=== PATIENT | male | born 1965 | race Caucasian/White ===

== ENCOUNTER 2020-08-27 03:30 | Emergency (ER) | payer MEDICARE, MEDICAID, SELFPAY ==
[2020-08-27 03:46] VITALS: BP 147/94; PULSE 106; RESP 20; TEMP 36.6; O2SAT 99; BMI 34.4
--- NOTE | 2020-08-27 05:11 | ED_ITS ---
HPI - Wound/Laceration General Chief Complaint: Wound/Laceration Stated Complaint: Wound check Time Seen by Provider: 08/27/20 04:59 Source: patient Mode of arrival: ambulatory Limitations: no limitations History of Present Illness HPI narrative: Patient comes emergency room complaining of a large blister on his right foot. Patient states that he has been walking a long distance, patient is homeless. Patient states that he walked from [place] 3 days ago. Related Data Allergies Allergy/AdvReac Type Severity Reaction Status Date / Time aripiprazole [From ABILIFY] Allergy Unknown CHEST PAIN Unverified 05/02/20 14:45 codeine [CODEINE] Allergy Unknown CHEST PAIN Unverified 05/02/20 14:45 diphenhydramine [Benadryl] Allergy Unknown Verified 08/08/15 00:00 ziprasidone [Geodon] Allergy Unknown Verified 08/08/15 00:00 quetiapine [Seroquel] AdvReac Unknown Dizziness Verified 08/08/15 00:00 From Benadryl Allergy Allergy Unknown N/A Uncoded 05/02/20 14:45 From GEODON Allergy Unknown CHEST PAIN Uncoded 05/02/20 14:45 From SEROQUEL Allergy Unknown HTN,INCREASED Uncoded 05/02/20 14:45 PULSE Review of Systems Review of Systems: Constitutional : No Weight loss, No Fever, No Chills, No Night Sweats, No Fatigue, No Malaise ENT/Mouth : No Hearing loss, No Ear Pain, No Nasal Congestion, No Sinus Pain, No Hoarseness, No sore throat, No Rhinorrhea, No Swallowing Difficulty Eyes: No Eye Pain, No Swelling, No Redness, No Foreign Body, No Discharge, No Vision Changes Cardiovascular : No Chest Pain, No SOB, No Dyspnea on Exertion, No Orthopnea, No Edema, No Palpitations Respiratory : No Cough, No Sputum, No Wheezing, No Smoke Exposure, No Dyspnea Gastrointestinal : No Nausea, No Vomiting, No Diarrhea, No Constipation, No abdominal Pain, No Hematochezia, No Melena Genitourinary : no irregular bleeding, No Dysuria, No Urinary Frequency, No Hematuria, No Urinary Incontinence, No Urgency, No Flank Pain, No Urinary Flow Changes, No Hesitancy Musculoskeletal : No joint pain, No Myalgias, No Joint Swelling Skin : Complaining of blisters in both feet but worse on the right foot Neuro : No Weakness, No Numbness, No Paresthesias, No Loss of Consciousness, No Dizziness, No Headache Psych : No Anxiety/Panic, No Depression, No SI/HI/AH/VH, No Social Issues, Heme/Lymph: No Bruising, No Bleeding,No Lymphadenopathy Endocrine : No Polyuria, No Polydipsia, No Temperature Intolerance PMFSH Past Medical History Medical History Schizophrenia Social History Social History Advance Directives: No Physical Exam Vital Signs: Vital Signs: Last Vital Signs Temp 98 F 08/27/20 03:46 Pulse 106 H 08/27/20 03:46 Resp 20 08/27/20 03:46 BP 147/94 H 08/27/20 03:46 Pulse Ox 99 08/27/20 03:46 Body Mass Index 34.4 Appearance: Alert. Oriented X3. No acute distress. Disheveled Eyes: Pupils equal, round and reactive to light. ENT: Pharynx normal. Neck: Normal inspection. Neck supple. No lymph nodes noted. No crepitus CVS: Normal heart rate and rhythm. Pulses normal. Normal S1 and S2 Respiratory: No respiratory distress. Breath sounds normal. No Wheezing. No rales Abdomen: Soft and nontender. No rigidity. No distention. good BS x4 Skin: Skin warm and dry. Patient has multiple blisters in both soles, the blisters under right foot already popped, a large blister on the left foot has serosanguineous fluid, no cellulitis Extremities: No lower extremity edema. No lower extremity edema. No Lacerations. No Rash Neuro: Oriented X 3. No motor deficit. No sensory deficit. Moving all extermities. No slurred speech. Psych: Patient is laughing by himself, uncooperative, patient is not suicidal or homicidal Course Course Course Narrative: The blister was drained with a hypodermic needle, serosanguineous fluid was drained, no pus. Patient states that he feels much better. Patient requesting a turkey sandwich. Discharge Plan Discharge Clinical Impression: Blister of foot Qualifiers: Encounter type: initial encounter Laterality: unspecified laterality Qualified Code(s): S90.829A - Blister (nonthermal), unspecified foot, initial encounter Patient Disposition: Home, Self-Care Additional Instructions: Please follow-up with your primary care physician tomorrow. If you have any worsening or new symptoms, please return to the emergency room or call 911
--- NOTE | 2020-08-27 05:18 | PC.NURSE ---
Pt provided with coffee per request, aware of plan to DC.
== END 2020-08-27 05:35 | disposition home or self-care (01) ==
PROVIDERS: Emergency Provider Emergency Medicine
DX: S90.821A Blister (nonthermal), right foot, initial encounter (principal); M79.671 Pain in right foot; X58.XXXA Exposure to other specified factors, initial encounter; Y93.9 Activity, unspecified; Y92.9 Unspecified place or not applicable; Y99.9 Unspecified external cause status
CPT/HCPCS: 99283

== ENCOUNTER 2020-08-27 20:43 | Emergency (ER) | payer MEDICARE, MEDICAID, SELFPAY | END 2020-08-27 21:07 | disposition left against medical advice (07) | PROVIDERS: Emergency Provider Internal Medicine | DX: M25.50 Pain in unspecified joint (principal) | CPT/HCPCS: 99281 ==

== ENCOUNTER 2020-08-27 21:10 | Emergency (ER) | payer MEDICARE, MEDICAID, SELFPAY ==
[2020-08-27 23:47] VITALS: BP 132/83; BMI 35.9
[2020-08-28] VITALS (8 sets, daily range): BP systolic 107–132; BP diastolic 64–83; PULSE 82–99; RESP 16–18; TEMP 37.1; O2SAT 96–98
--- NOTE | 2020-08-28 03:24 | ED.GENADULT ---
HPI - General Adult General Chief complaint: General Medical Stated complaint: CRISIS Time Seen by Provider: 08/28/20 03:24 Source: patient Mode of arrival: ambulatory Limitations: no limitations History of Present Illness HPI narrative: Patient comes to emergency room stating that started it started raining outside, patient is homeless, then he decided that he wanted [facility] come [facility]. Patient states that he wants to see [facility] to help her decide if he needs to go back to [facility]. Patient admits to using crack and heroin. Patient gets Haldol IM for schizophrenia. Patient was seen earlier this morning with a chief complaint of blisters in his feet. MD complaint: Wants to see [facility] Related Data Allergies Allergy/AdvReac Type Severity Reaction Status Date / Time aripiprazole [From ABILIFY] Allergy Unknown CHEST PAIN Verified 08/27/20 23:46 codeine [CODEINE] Allergy Unknown CHEST PAIN Verified 08/27/20 23:46 diphenhydramine [Benadryl] Allergy Unknown Unknown Verified 08/27/20 23:46 ziprasidone [Geodon] Allergy Unknown Unknown Verified 08/27/20 23:46 quetiapine [Seroquel] AdvReac Unknown Dizziness Verified 08/27/20 23:46 From Benadryl Allergy Allergy Unknown N/A Uncoded 05/02/20 14:45 From GEODON Allergy Unknown CHEST PAIN Uncoded 05/02/20 14:45 From SEROQUEL Allergy Unknown HTN,INCREASED Uncoded 05/02/20 14:45 PULSE Review of Systems Review of Systems: Constitutional : No Weight loss, No Fever, No Chills, No Night Sweats, No Fatigue, No Malaise ENT/Mouth : No Hearing loss, No Ear Pain, No Nasal Congestion, No Sinus Pain, No Hoarseness, No sore throat, No Rhinorrhea, No Swallowing Difficulty Eyes: No Eye Pain, No Swelling, No Redness, No Foreign Body, No Discharge, No Vision Changes Cardiovascular : No Chest Pain, No SOB, No Dyspnea on Exertion, No Orthopnea, No Edema, No Palpitations Respiratory : No Cough, No Sputum, No Wheezing, No Smoke Exposure, No Dyspnea Gastrointestinal : No Nausea, No Vomiting, No Diarrhea, No Constipation, No abdominal Pain, No Hematochezia, No Melena Genitourinary : no irregular bleeding, No Dysuria, No Urinary Frequency, No Hematuria, No Urinary Incontinence, No Urgency, No Flank Pain, No Urinary Flow Changes, No Hesitancy Musculoskeletal : No joint pain, No Myalgias, No Joint Swelling Skin : Complaining of blisters on his feet Neuro : No Weakness, No Numbness, No Paresthesias, No Loss of Consciousness, No Dizziness, No Headache Psych : Denies suicidal or homicidal ideation, no anxiety, no depression Heme/Lymph: No Bruising, No Bleeding,No Lymphadenopathy Endocrine : No Polyuria, No Polydipsia, No Temperature Intolerance [facility] Past Medical History Medical History Schizophrenia Social History Social History Advance Directives: No Physical Exam Vital Signs: Vital Signs: Last Vital Signs Pulse 99 08/28/20 02:46 Resp 18 08/28/20 02:46 BP 132/83 08/28/20 02:46 Pulse Ox 98 08/28/20 02:46 Body Mass Index 35.9 Appearance: Alert. Oriented X3. No acute distress. Somnolent Eyes: Pupils equal, round and reactive to light. ENT: Pharynx normal. Neck: Normal inspection. Neck supple. No lymph nodes noted. No crepitus CVS: Normal heart rate and rhythm. Pulses normal. Normal S1 and S2 Respiratory: No respiratory distress. Breath sounds normal. No Wheezing. No rales Abdomen: Soft and nontender. No rigidity. No distention. good BS x4 Skin: Blisters in his feet Extremities: No lower extremity edema. No lower extremity edema. No Lacerations. No Rash Neuro: Oriented X 3. No motor deficit. No sensory deficit. Psych: Patient has rapid speech, easily redirectable
--- NOTE | 2020-08-28 05:42 | PC.NURSE ---
PT RESTING QUIETLY IN RECLINER AT THIS TIME. WAITING FOR [facility]
--- NOTE | 2020-08-28 05:43 | PC.NURSE ---
ISAI MAINTAINED FOR SAFETY
[2020-08-29] VITALS: RESP 18
[2020-08-29 02:00] VITALS: BP 105/56; PULSE 74; RESP 16; TEMP 36.9; O2SAT 99
[2020-08-29 03:53] VITALS: RESP 16
[2020-08-29 05:47] VITALS: BP 132/74; PULSE 76; RESP 18; TEMP 36.9; O2SAT 96
[2020-08-29 06:01] VITALS: BP 120/69; PULSE 85; RESP 18; TEMP 36.8; O2SAT 93
[2020-08-29 06:01] LABS: Appearance Urine CLEAR; Color Urine YELLOW; Glucose Urine UA NEG (NEG); Leukocyte Esterase Urine NEG (NEG); Nitrite Urine NEG (NEG); Specific Gravity - Urine 1.025 (1.005-1.025); UACC Culture Trigger NO; Urine Blood NEG (NEG); Urine Ketones NEG (NEG); Urine Protein NEG (NEG-TRACE)
[2020-08-29 06:24] LABS: Amphetamine Screen Urine Not Detected (Not Detect); Barbiturates, Urine Not Detected (Not Detect); Benzodiazepines Screen Urine Not Detected (Not Detect); Cannabinoid Screen Urine POSITIVE (Not Detect); Cocaine Screen Urine Not Detected (Not Detect); Opiate Screen Urine Not Detected (Not Detect); Phencyclidine Screen Urine Not Detected (Not Detect)
--- NOTE | 2020-08-29 08:42 | PC.NURSE ---
PT HAD BREAKFAST. AWAITING CARE TEAM TO ARRANGE FOR PT TO BE TRANSFERRED TO [facility] IN [place]
[2020-08-29 11:29] LABS: IDNOW Serial# 9DD0AD1C
[2020-08-29 11:30] LABS: COVID-19 Test Negative (Negative)
--- NOTE | 2020-08-29 12:22 | MHC.CARE ---
CARE team spoke w person in charge (Farhan Lozada) [phone] at the [facility] in [place]. He was open to pt returning anytime today and asked that a covid test be done prior if possible which the ED did and the test is negative. Due to their own infrastructure issues they cannot pick pt up therefore [facility] will have to get pt a cab/uber home. T/w spoke w pt about having to take a ride home and he was open to this and pleasant, looking forward to leaving the ED. T/w spoke hugo Real at 1227 to provide COVID results and to confirm that pt will be discharged and sent home once the ride was secured which he agreed. .
--- NOTE | 2020-08-29 12:54 | MHC.RECOVSUP ---
? Reason for consult:Continuity of care. o Current location: Discharged o Identified substance use concern: N/A - Support ? Intervention: ? Plan:Send pt. to respite ? Additional information:Patient sent to [place] in a lyft to the [facility].
== END 2020-08-29 12:41 ==
PROVIDERS: Nurse Practitioner Family; Emergency Provider Emergency Medicine
DX: F20.9 Schizophrenia, unspecified (principal); Z20.828 Contact with and (suspected) exposure to other viral communicable diseases; Z75.5 Holiday relief care; F11.90 Opioid use, unspecified, uncomplicated; Z79.899 Other long term (current) drug therapy
CPT/HCPCS: 36415; 80307; 81003; 87635; 99285

== ENCOUNTER 2021-07-19 08:17 | Emergency (ER) | payer MEDICARE, MEDICAID, SELFPAY ==
--- NOTE | ~2021-07-19 | XR_ITS ---
EXAMINATION: RIGHT FOOT AND ANKLE CLINICAL INFORMATION: Patient complains of getting blisters with cast being loose. COMPARISON: None TECHNIQUE: 3 views of the right foot and 2 views of the right ankle FINDINGS: Findings bony details obscured by overlying cast. Previous studies are not available for comparison so comment on any stability of positioning cannot be made. Medial malleolar fracture is identified with approximately 3 mm distraction of the thoracic limits. The medial joint space measures up to 5 mm. There appears to be a nondisplaced vertical fracture within the distal tibia. No other definite fracture of either the right foot or ankle appreciated. No erosive change is seen. XR/XR ankle RT min 3V IMPRESSION: Cast in place for medial malleolar fracture and distal tibial fracture as described.
--- NOTE | ~2021-07-19 | XR_ITS ---
EXAMINATION: RIGHT FOOT AND ANKLE CLINICAL INFORMATION: Patient complains of getting blisters with cast being loose. COMPARISON: None TECHNIQUE: 3 views of the right foot and 2 views of the right ankle FINDINGS: Findings bony details obscured by overlying cast. Previous studies are not available for comparison so comment on any stability of positioning cannot be made. Medial malleolar fracture is identified with approximately 3 mm distraction of the thoracic limits. The medial joint space measures up to 5 mm. There appears to be a nondisplaced vertical fracture within the distal tibia. No other definite fracture of either the right foot or ankle appreciated. No erosive change is seen. XR/XR foot RT min 3V IMPRESSION: Cast in place for medial malleolar fracture and distal tibial fracture as described.
[2021-07-19 08:27] VITALS: BP 161/98; PULSE 97; RESP 20; TEMP 36.7; O2SAT 100
[2021-07-19 08:28] VITALS: BP 161/98; PULSE 97; RESP 20; TEMP 36.7; O2SAT 99; BMI 27.7
--- NOTE | 2021-07-19 08:47 | ED_ITS ---
HPI - General Adult General Chief complaint: Extremity Injury, Lower Stated complaint: CASTED RIGHT FOOT PAIN FROM BLISTERS Time Seen by Provider: 07/19/21 08:45 Source: patient Mode of arrival: ambulatory Limitations: no limitations History of Present Illness HPI narrative: This is a 56 years old male presented ambulatory to the emergency department requesting the removal of the right leg cast. The cast was placed at [facility] about a week ago, unclear if he had a fracture or not. the patient has been walking on the cast and requesting removal. The patient is unable to give me the name or the orthopedic surgeon who placed the cast. Onset (ago): day(s) (1) Location: lower extremity (rt leg) Radiation: non-radiation Quality: aching Pain Consistency: constant Exacerbating factors: none Related Data Allergies Allergy/AdvReac Type Severity Reaction Status Date / Time aripiprazole [From ABILIFY] Allergy Unknown CHEST PAIN Verified 08/27/20 23:46 codeine [CODEINE] Allergy Unknown CHEST PAIN Verified 08/27/20 23:46 diphenhydramine [Benadryl] Allergy Unknown Unknown Verified 08/27/20 23:46 ziprasidone [Geodon] Allergy Unknown Unknown Verified 08/27/20 23:46 quetiapine [Seroquel] AdvReac Unknown Dizziness Verified 08/27/20 23:46 From Benadryl Allergy Allergy Unknown N/A Uncoded 05/02/20 14:45 From GEODON Allergy Unknown CHEST PAIN Uncoded 05/02/20 14:45 From SEROQUEL Allergy Unknown HTN,INCREASED Uncoded 05/02/20 14:45 PULSE Review of Systems Review of Systems: Yes all other systems are reviewed and are negative Cardiovascular: Cardiovascular: Reports no additional cardiovascular complaints Gastrointestinal: Gastrointestinal: Reports no additional gastrointestinal complaints Musculoskeletal: Musculoskeletal: Reports no additional musculoskeletal complaints Neurologic: Reports system reviewed and no additional complaints, except as documented PMFSH Past Medical History Medical History Schizophrenia Social History Social History Alcohol intake: unknown Advance Directives: No Advance Directives Information Provided: Yes Physical Exam Vital Signs: Vital Signs: Last Vital Signs Temp 98.1 F 07/19/21 08:28 Pulse 97 07/19/21 08:28 Resp 20 07/19/21 08:28 BP 161/98 H 07/19/21 08:28 Pulse Ox 99 07/19/21 08:28 BMI result Body Mass Index 27.7 Const: Other: On physical examination looks well is not toxic-appearing he is afebrile General: cooperative Nutritional Appearance: average body habitus Orientation/consciousness: patient oriented x3 HENMT: Head: Yes normal to inspection General nose exam: Normal external nose present Face and sinus: Yes normal facial exam Mouth: Normal oral and palatal mucosa present Throat: Yes posterior oropharynx normal Neck: Neck: Yes normal visual inspection and Yes full ROM Chest: Chest palpation & inspection: normal inspection of the chest Resp: Effort & Inspection: normal respiratory effort Auscultation: clear to auscultation bilaterally Cardio: Jugular venous distension: no JVD Rate: regular rate Rhythm: regular rhythm GI: Inspection: Yes normal to inspection Percussion: Yes normal to percussion Skin: General skin exam: no rashes or lesions noted, elasticity normal and turgor normal Neuro: General: patient oriented x3 Extrem: Other: History min examination is shows right short leg cast, he has normal call or the toes he has good capillary refill of the toes Course Course Course Narrative: I spoke with the Ortho paraprofessional education assistant Willow Rolon she can follow him up as outpatient.the xray showed that he has rt displaced malleoulus fx,I do not think it is leong to remove the cast in this pt homeless and hx of schizophrenia . The foot does not show any evidence of circulatory compromize. I tried to get also medical record looks like he was at [facility] ED Jul 12,,,Jul 16,Jul 2 I spoke gain with the Ortho clinical services consultant will leave cast on ;Willow Rolon will call the pt Wednesday Medical Decision Making MDM Narrative Medical decision making narrative: We are going we were going to get the medical record from [facility], also going to get an x-ray of ankle and foot. The patient cannot tell me the name of his orthopedic surgeon so I am unable to call him, but I will try to get medical record from the outside hospital Imaging Data ankle rt: Radiologist's impression: None? TECHNIQUE: 3 views of the right foot and 2 views of the right ankle? FINDINGS: Findings bony details obscured by overlying cast. Previous studies are not available for comparison so comment on any stability of positioning cannot be made. Medial malleolar fracture is identified with approximately 3 mm distraction of the thoracic limits. The medial joint space measures up to 5 mm. There appears to be a nondisplaced vertical fracture within the distal tibia. No other definite fracture of either the right foot or ankle appreciated. No erosive change is seen. XR/XR ankle RT min 3V IMPRESSION: Cast in place for medial malleolar fracture and distal tibial fracture as described.? Dictated By: Luis Fox MD Signed By: <Electronically signed by Luis Fox MD in [place]> 07/19/21938 DD/ 3 TD/TT:? Musical Instruments Assembler: SK Discharge Plan Discharge Clinical Impression: Fracture, ankle Patient Disposition: Home, Self-Care Instructions: Ankle Fracture (ED) Additional Instructions: Follow-up with the orthopedist cold due to [place] office [phone], you follow-up fracture or you ankle that the need follow-up Referrals: Perez Schmitz MD [Physician] - 2 days Interventions: ED Discharge Assessment Last Done: 07/19/21 10:04 Discharge Date/Time: 07/19/21 10:05
--- NOTE | 2021-07-19 09:38 | PC.NURSE ---
PT GIVES [phone] HIS CELL PHONE NUMBER PT HAS 4 DIFFERENT CELL PHONES WITH HIM
== END 2021-07-19 10:05 | disposition home or self-care (01) ==
PROVIDERS: Emergency Provider Emergency Medicine
DX: S82.54XD Nondisplaced fracture of medial malleolus of right tibia, subsequent encounter for closed fracture with routine healing (principal); X58.XXXD Exposure to other specified factors, subsequent encounter
CPT/HCPCS: 73610; 73630; 99283

== ENCOUNTER 2022-07-24 07:47 | Emergency (ER) | payer MEDICARE, MEDICAID, SELFPAY | END 2022-07-24 09:11 | disposition left against medical advice (07) | PROVIDERS: Emergency Provider Emergency Medicine | DX: R07.89 Other chest pain (principal) ==

== ENCOUNTER 2022-07-28 00:20 | Emergency (ER) | payer MEDICARE, MEDICAID, SELFPAY ==
--- NOTE | ~2022-07-28 | XR_ITS ---
EXAMINATION: XR ANKLE, RIGHT CLINICAL INFORMATION: Status post ORIF COMPARISON: 07/19/2021. TECHNIQUE: AP, lateral, and mortise views of the right ankle. FINDINGS: There are 3 partially cannulated screws, 2 obliquely oriented along the medial malleolus and one horizontally oriented across the tibial plafond. No evidence of hardware failure. Chronic medial malleolar fracture. Mild diffuse nonspecific soft tissue swelling. No unexpected radiopaque foreign bodies. XR/XR ankle RT 2V IMPRESSION: 1. No acute fractures or malalignment. 2. No evidence of hardware failure. 3. Nonspecific soft tissue swelling.
[2022-07-28 00:31] VITALS: BP 140/96; PULSE 108; RESP 20; TEMP 36.6; O2SAT 98; BMI 32.1
--- NOTE | 2022-07-28 01:03 | PC.NURSE ---
PT A&Ox3, reports 10/10 pain to right ankle, back pain, and chest pain. PT states I don't need EKG, all I need is one dose of lidocaine, and one 10 mg percocet, and I will be on my way . Denies SI/HI.
--- NOTE | 2022-07-28 01:05 | ED.GENADULT ---
HPI - General Adult General Chief complaint: General Medical Stated complaint: back pain Time Seen by Provider: 07/28/22 01:04 Source: patient Mode of arrival: ambulatory Limitations: no limitations History of Present Illness HPI narrative: Patient with psychotic disorder comes here for left ankle pain which happened about 3 days ago when he was walking and tripped on a tree branch. Patient had ORIF 4 years ago and was doing much better without any pain asking for lidocaine viscous for gastritis and pain medication chronic back pain and foot pain patient ambulatory as such Related Data Allergies Allergy/AdvReac Type Severity Reaction Status Date / Time aripiprazole [From ABILIFY] Allergy Unknown CHEST PAIN Verified 07/28/22 00:31 codeine [CODEINE] Allergy Unknown CHEST PAIN Verified 07/28/22 00:31 diphenhydramine [Benadryl] Allergy Unknown Unknown Verified 07/28/22 00:31 ziprasidone [Geodon] Allergy Unknown Unknown Verified 07/28/22 00:31 quetiapine [Seroquel] AdvReac Unknown Dizziness Verified 07/28/22 00:31 From Benadryl Allergy Allergy Unknown N/A Uncoded 07/28/22 00:31 From GEODON Allergy Unknown CHEST PAIN Uncoded 07/28/22 00:31 From SEROQUEL Allergy Unknown HTN,INCREASED Uncoded 07/28/22 00:31 PULSE Review of Systems Review of Systems: Yes all other systems are reviewed and are negative PMFSH Past Medical History Medical History Schizophrenia Social History Social History Alcohol intake: never Smoked in Last 30 Days: Yes Use of substances other than those prescribed or required for medical reasons: Yes Substance Use Type: Marijuana Advance Directives: No Advance Directives Information Provided: Yes Physical Exam ED Vital Signs: Vital Signs - 24 hr 07/28/22 00:31 Temperature 97.8 F Pulse Rate 108 H Respiratory Rate 20 Blood Pressure 140/96 H Pulse Oximetry 98 Oxygen Delivery Method Room Air BMI result Body Mass Index 32.1 Appearance: Alert. Oriented X3. No acute distress. Anxious Eyes: PERRLA, No Nystagmus ENT: Pharynx normal. Oral Mucosa moist Neck: Normal inspection. Neck supple. CVS: Normal heart rate and rhythm. Pulses normal. Respiratory: No respiratory distress. Equal air entry bilateral, no wheezing/rales/rhonchi Abdomen: Soft and nontender. Bowel sounds are present, no mass palpable, no CVA tenderness Skin: Skin warm and dry. Normal skin color. Normal skin turgor. Extremities: No lower extremity edema. No calf tenderness mild soft tissue tenderness writing the good range of movement Neuro: Oriented X 3. No motor deficit. Medications Administered Discontinued Medications Generic Name Dose Route Start Last Admin Trade Name Freq PRN Reason Stop Dose Admin Lidocaine HCl 15 ml 07/28/22 01:12 07/28/22 01:22 Lidocaine Hcl Viscous 2 % 15 Ml Solution MUCOUS MEM 07/28/22 01:13 15 ml ONCE ONE Administration Oxycodone HCl 10 mg 07/28/22 01:12 07/28/22 01:21 Oxycodone Hcl Immed Release 5 Mg Tablet PO 07/28/22 01:13 10 mg ONCE ONE Administration Medical Decision Making Medical Decision Making MDM Narrative: Patient x-ray of right ankle negative for any fracture gastritis symptoms got better after lidocaine viscous patient otherwise takes omeprazole discharge patient home Discharge Plan Discharge Clinical Impression: Ankle contusion Patient Disposition: Home, Self-Care Instructions: Ankle Strain (ED) Additional Instructions: Apply ice pack The x-rays normal no fracture seen take Tylenol for pain follow-up with your PCP Interventions: ED Discharge Assessment Last Done: 07/28/22 01:42 Discharge Date/Time: 07/28/22 01:44
[2022-07-28] MEDS: oxyCODONE HCl Immed Release 5 MG TABLET 10 MG PO (01:21)
[2022-07-28] MEDS: Lidocaine HCl Viscous 2 % 15 ML SOLUTION MUCOUS MEM (01:22)
== END 2022-07-28 01:44 | disposition home or self-care (01) ==
PROVIDERS: Emergency Provider Internal Medicine
DX: M25.572 Pain in left ankle and joints of left foot (principal); M54.50 Low back pain, unspecified
CPT/HCPCS: 73600; 99283; 99284

== ENCOUNTER 2022-07-30 12:59 | Emergency (ER) | payer MEDICARE, MEDICAID, SELFPAY ==
[2022-07-30 13:43] VITALS: BP 150/90; BP 152/85; PULSE 87; PULSE 94; RESP 17; TEMP 35.8; O2SAT 94; O2SAT 97; BMI 32.5
--- NOTE | 2022-07-30 13:46 | ED_ITS ---
HPI - Abdominal Pain General Chief Complaint: General Medical Stated Complaint: abd pain per EMS Time Seen by Provider: 07/30/22 18:39 Source: patient and EMS Mode of arrival: EMS Limitations: no limitations History of Present Illness HPI narrative: 57yoM presenting to the ED c c/o worsening left groin pain/hernia pain for the past few months worse today. Denies any other symptoms complaints or concerns related to this. MD elicited complaint: other (Groin pain) Pertinent past history: other (History of hernia) Onset (ago): month(s) (Worse in the past few days) Pain Consistency: constant Location: suprapubic (Groin area) Severity: mild Quality: aching Radiation: none Migration to: no migration Exacerbating factors: nothing Relieving factors: nothing Associated symptoms: denies other symptoms Related Data Allergies Allergy/AdvReac Type Severity Reaction Status Date / Time aripiprazole [From ABILIFY] Allergy Unknown CHEST PAIN Verified 07/28/22 00:31 codeine [CODEINE] Allergy Unknown CHEST PAIN Verified 07/28/22 00:31 diphenhydramine [Benadryl] Allergy Unknown Unknown Verified 07/28/22 00:31 ziprasidone [Geodon] Allergy Unknown Unknown Verified 07/28/22 00:31 quetiapine [Seroquel] AdvReac Unknown Dizziness Verified 07/28/22 00:31 From Benadryl Allergy Allergy Unknown N/A Uncoded 07/28/22 00:31 From GEODON Allergy Unknown CHEST PAIN Uncoded 07/28/22 00:31 From SEROQUEL Allergy Unknown HTN,INCREASED Uncoded 07/28/22 00:31 PULSE Review of Systems Review of Systems Constitutional : No Weight loss, No Fever, No Chills, No Night Sweats, No Fatigue, No Malaise ENT/Mouth : No Hearing loss, No Ear Pain, No Nasal Congestion, No Sinus Pain, No Hoarseness, No sore throat, No Rhinorrhea, No Swallowing Difficulty Eyes: No Eye Pain, No Swelling, No Redness, No Foreign Body, No Discharge, No Vision Changes Cardiovascular : No Chest Pain, No SOB, No Dyspnea on Exertion, No Orthopnea, No Edema, No Palpitations Respiratory : No Cough, No Sputum, No Wheezing, No Smoke Exposure, No Dyspnea Gastrointestinal : No Nausea, No Vomiting, No Diarrhea, No Constipation, + abdominal Pain, No Hematochezia, No Melena Genitourinary : no irregular bleeding, No Dysuria, No Urinary Frequency, No Hematuria, No Urinary Incontinence, No Urgency, No Flank Pain, No Urinary Flow Changes, No Hesitancy Musculoskeletal : No joint pain, No Myalgias, No Joint Swelling Skin : No Skin Lesions, No rash Neuro : No Weakness, No Numbness, No Paresthesias, No Loss of Consciousness, No Dizziness, No Headache Psych : No Anxiety/Panic, No Depression, No SI/HI/AH/VH, No Social Issues, Heme/Lymph: No Bruising, No Bleeding,No Lymphadenopathy Endocrine : No Polyuria, No Polydipsia, No Temperature Intolerance Yes all other systems are reviewed and are negative [facility] Past Medical History Attestation statement: The following information was validated with the patient. Source: old records reviewed and nursing notes reviewed Medical History Schizophrenia Social History Social History Alcohol intake: never Substance Use Type: Marijuana Advance Directives: No Advance Directives Information Provided: No Physical Exam ED Vital Signs: Vital Signs - 24 hr 07/30/22 13:43 Temperature 96.5 F L Pulse Rate 87 Respiratory Rate 17 Blood Pressure 152/85 H Pulse Oximetry 97 Oxygen Delivery Method Room Air BMI result Body Mass Index 32.5 vital signs have been reviewed as normal and appeared to be correct. Blood pressure normal. Heart rate normal. Respiration rate normal. Temperature normal. Oxygen saturation normal. Appearance: Alert. Oriented X3. No acute distress. Head: Normal external exam. Normocephalic. Atraumatic. Eyes: PERRLA. EOMI. Conjunctiva and sclera normal. Eyelids normal. ENT:Pharynx normal. Uvula midline. Moist mucous membranes. No lesions/ulcerations or masses noted on the tongue. Normal voice. No trismus not ed. No drooling noted. No muffled voice noted. Neck: Normal inspection. Neck supple. FROM. No adenopathy. Thyroid Normal. No meningeal signs. CVS: Normal heart rate and rhythm. Heart sound normal. Pulses normal throughout. No murmurs/rales/gallops. Respiratory: No respiratory distress. Painless inspiration. Breath sounds normal. No wheezes/rales/rhonchi noted. Chest nontender. No crepitus is noted. No signs of trauma noted. No accessory muscle usage noted or decreased air movement noted. No signs of trauma. Abdomen: Soft and mild tenderness to suprapubic area. Bowel sounds normal in all 4 quadrants. No distention noted. No organomegaly noted. No visible injury noted. Back: No CVA tenderness. Full range of motion noted. Nontender. No signs of trauma. Patient neuro intact bilaterally and distally on all 4 extremities. Patient's reflexes intact bilaterally and distally on all 4 extremities. No rashes/lesion/induration/fluctuance or signs of infection noted. Skin: Skin warm and dry. Normal skin color. Normal skin turgor. No rashes/lesions/lacerations noted. Extremities: No lower extremity edema. No calf tenderness is noted. Extremities exhibit normal range of motion and nontender. Neuro: Oriented X 3. No motor deficit. No sensory deficit. Reflexes normal. Normal steady gait. No focal neuro deficits noted. CN's II-XII intact bilaterally? Vascular: + radial pulses/+ 2 distal pedal pulses/+2 dorsalis pedis b/l. Normal cap refill. No cyanosis noted to upper extremity nails and lower extremity toes nails. Course Course Course Narrative: RME-13:50 - 57yoM presenting to the ED c c/o worsening left groin pain/hernia pain for the past few months worse today. Denies any other symptoms complaints or concerns related to this. Plan: Labs, UA. Patient will be sent back to the waiting room for further evaluation treatment to the main ER. Reevaluation(s) Reevaluation #1: It appears that the patient eloped right after he was triaged he did not have any labs or imaging performed. Time: 18:41 Discharge Plan Discharge Clinical Impression: Abdominal pain Patient Disposition: Elopement
== END 2022-07-30 19:18 | disposition left against medical advice (07) ==
PROVIDERS: Emergency Provider Internal Medicine
DX: R10.32 Left lower quadrant pain (principal); Z79.899 Other long term (current) drug therapy
CPT/HCPCS: 99282